=== PATIENT | male | born 1950 | race Caucasian/White ===

== ENCOUNTER 2018-09-20 17:45 | Inpatient (IN) ==
[2018-09-20] MEDS ORDERED: Mag Hydrox/Al Hydrox/Simeth 30 ML UDC PO PRN (18:33)
[2018-09-20] MEDS ORDERED: Haloperidol Lactate 5 MG/ML VIAL IM PRN (18:33)
[2018-09-20] MEDS ORDERED: traZODone 50 MG TABLET PO PRN (18:33)
[2018-09-20] MEDS ORDERED: *HR* LORazepam 1 MG TABLET PO PRN (18:33)
[2018-09-20] MEDS ORDERED: Ibuprofen 400 MG TABLET PO PRN (18:33)
[2018-09-20] MEDS ORDERED: hydrOXYzine pamoate 25 MG CAPSULE PO PRN (18:33)
[2018-09-20] MEDS ORDERED: *HR* LORazepam 2 MG/ML VIAL IM PRN (18:33)
[2018-09-20] MEDS ORDERED: MOM Conc 10 ML UD.LIQ PO PRN (18:33)
[2018-09-20] MEDS: hydroCHLOROthiazide 25 MG TABLET PO SCH (21:02)
[2018-09-20] MEDS: Lisinopril 20 MG TABLET PO SCH (21:03)
[2018-09-20] MEDS: FLUoxetine 20 MG CAPSULE PO SCH (21:03)
[2018-09-21] MEDS: Metoprolol XL (24 HR) Succ 50 MG TAB.ER.24H PO SCH ×2 (00:09→09:34)
[2018-09-21] MEDS: FLUoxetine 20 MG CAPSULE PO SCH (09:34)
[2018-09-21] MEDS: hydroCHLOROthiazide 25 MG TABLET PO SCH (09:34)
--- NOTE | 2018-09-21 11:21 | Psychiatry History & Physical ---
Date of Encounter: 09/21/18 Time of Encounter: 11:00 History of Present Illness Patient Stated Chief Complaint: I am Depressed. Medicare Admission Attestation: For traditional Medicare patients the provided hospital inpatient services are reasonable and necessary and in the case of services not specified as inpatient-only under 42 CFR 419.22 (n), that they are appropriately provided as inpatient services in accordance 42 CFR 412.3. For Critical Access Hospital the patient may reasonably be expected to be discharged or transferred to a hospital within 96 hours after admission to the Critical Access Hospital. Admitted From: Home Plans for Post Hospital Care: Home History of Present Illness: Mr. Lee is a 67 year old male, marriedx1, with son 42 and daughter 37 who presents with exacerbation of Depression. Pt noted he made it to [employer] degree in management and associates degree in engineering. Pt noted he is currently employed at [employer] in [place]. Pt note he currently lives in [place] with his . Pt denied any previous suicide attempts. Pt noted one previous inpt psychiatric admission to [facility] due to anxiety and depression. Pt noted he is currently on fluoxetine 40 mg for mood. Pt denies any suicides or mental health hx in his family. Pt denied any hx of abuse, trauma or neglect. Pt Noted he was doing "better today." Pt stated that his appetite was "good....." Pt stated that he slept "8 hours broken." last night. Pt noted his appetite is "good." Pt rated his depression a "7," on a scale of zero to ten w ith ten being the worst and zero being none. Pt rated his anxiety a "7," on the same scale. Pt denied any current thoughts to harm himself or anyone else. Pt noted he currently feels safe and comfortable on the unit. Pt denied any auditory or visual hallucinations. Currently had an affair on his due to her note having a sex drive anymore. Pt noted "the guilt is horrible." Pt denied any hx of Hep C, HIV, TBIs or Seizures. Tobacco: Denies any current Street drugs: Denies any current Alcohol: Denies any current Caffeine: 1-2 per day. NO TD noted, AIMS=0 1. Interval History. 2. Review current labs 3. Continue current medications 4. Supportive Therapy Provided 5. Pt had an opportunity to ask questions and address concerns 6. Pt encouraged to continue therapy group or individual. 7. Pt was in agreement with treatment plan. 8. The risks benefits and side effects of medications were discussed with the patient, including alternatives and no treatment. 9. Pt educated on abstaining from any alcohol or illicit substances, following up with all scheduled appointments, and taking all medications as prescribed. 10. Increase fluoxetine to 60 mg PO QAM for mood 11. Start aripiprazole 2 mg PO for mood. Past Med Surg Social Fam HX - Past Medical History Medical history: hypertension - Past Psychiatric History Psychiatric history: Reports: depression Family psychiatric history: No Family History of Suicide: None - Past Surgical History Surgical History: non-contributory - Social History Smoking Status: Never smoker Smokeless Tobacco Status: No Alcohol use: none Drug use: none Medications & Allergies Enalapril Maleate [Vasotec] 10 mg PO BID 09/14/16 [History] Tamsulosin HCl [Flomax] 0.4 mg PO HS 09/14/16 [History] hydroCHLOROthiazide [Hydrochlorothiazide] 25 mg PO DAILY 09/14/16 [History] FLUoxetine HCl [Fluoxetine HCl] 40 mg PO DAILY 09/20/18 [History] Metoprolol XL (24 HR) Succ [Toprol XL] 50 mg PO DAILY 09/20/18 [History] Allergy/AdvReac Type Severity Reaction Status Date / Time chicken derived Allergy Unknown See Verified 09/14/16 09:43 Comments Review of Systems Constitutional: Denies: fever, chills, weakness, weight change Eyes: Denies: eye pain, vision change Ears, Nose, Throat: Denies: ear pain, throat pain, dental pain, hearing loss, congestion Cardiovascular: Denies: chest pain, palpitations, dyspnea on exertion Respiratory: Denies: cough, dyspnea, wheezes Gastrointestinal: Denies: abdominal pain, nausea, vomiting, diarrhea, constipation Genitourinary male: Denies: urgency, dysuria, frequency, genital lesions Musculoskeletal: Denies: joint swelling, joint pain Integumentary: Denies: rash, lesions, pruritus Neurological: Denies: headache, weakness, numbness, memory loss Psychiatric: Reports: depression Endocrine: Denies: fatigue, heat or cold intolerance Hematologic/Lymphatic: Denies: easy bruising, lymphadenopathy Allergic/Immunologic: Denies: urticaria, itchy eyes Exam - HEENT Head exam IM: Present: atraumatic Eye exam IM: Present: EOMI, normal appearance, PERRL ENT exam IM: Present: normal exam - Neurological Neurological exam: Present: CN II-XII intact - Respiratory Respiratory exam IM: Present: CTAB - GI/Abdominal GI/Abdominal exam IM: Present: normal bowel sounds, soft. Absent: tenderness - Extremities Extremities exam IM: Present: full ROM - Skin Skin exam IM: Present: dry, warm - Constitutional Vitals: Temp Pulse Resp BP Pulse Ox 98.9 F 72 18 172/94 96 09/21/18 09:00 09/21/18 09:00 09/21/18 09:00 09/21/18 09:00 09/21/18 09:00 General appearance: age & developmentally appropriate, well-groomed, well- nourished - Musculoskeletal Gait: normal Station: relaxed Strength & Tone: normal for patient - Psychiatric Patient Orientation: Yes Person, Yes Time, Yes Place Level of alertness: Alert Behavior: calm, cooperative Psychomotor activity: Normal Eye Contact: Maintains Eye Contact Mood Description: Euthymic/stable Affect description: congruent with mood, full range Speech Volume: Normal Speech pattern: normal rate, normal rhythm, normal tone, fluent, spontaneous Language & Vocabulary: consistent with education Thought Process: Linear, Goal Oriented Thought Content: No Suicidal ideation, No Homicidal ideation, No Overt delusions Perceptual Disturbances: No Auditory hallucinations, No Visual hallucinations Attention Span Ability: Capable of Focused Attention Memory Description: Grossly Intact Patient Reliability: Reliable Historian Fund of knowledge: Yes abstraction ability, Yes average, Yes aware of current events Intelligence Estimate: Average Judgment: Limited Insight: Partial Assessment and Plan (1) Adjustment disorder Current visit: Yes Status: Acute Plan: Admit inpatient for safety and stabilization, Close observation, Suicide Precautions per unit protocol, Encourage participation in unit milieu, Group Therapy, Monitor sleep, Monitor appetite Risks, benefits, side effects, alternatives discussed w/pt: Yes Patient agreeable to treatment: Yes Plans for Post Hospital Care: at Home Qualifiers: Adjustment disorder type: with depressed mood Qualified Code(s): F43.21 - Adjustment disorder with depressed mood (2) Depressive disorder Current visit: Yes Status: Acute Plan: Admit inpatient for safety and stabilization, Close observation, Suicide Precautions per unit protocol, Encourage participation in unit milieu, Group Therapy, Monitor sleep, Monitor appetite Risks, benefits, side effects, alternatives discussed w/pt: Yes Patient agreeable to treatment: Yes Plans for Post Hospital Care: at Home (3) Suicidal ideation Current visit: Yes Status: Acute Plan: Admit inpatient for safety and stabilization, Close observation, Suicide Precautions per unit protocol, Encourage participation in unit milieu, Group Therapy, Monitor sleep, Monitor appetite Risks, benefits, side effects, alternatives discussed w/pt: Yes Patient agreeable to treatment: Yes Plans for Post Hospital Care: at Home
[2018-09-21] MEDS: ARIPiprazole 2 MG TABLET PO SCH (11:50)
[2018-09-21] MEDS: Lisinopril 20 MG TABLET PO SCH (21:19)
[2018-09-22] MEDS: ARIPiprazole 2 MG TABLET PO SCH (08:56)
[2018-09-22] MEDS: Metoprolol XL (24 HR) Succ 50 MG TAB.ER.24H PO SCH (08:56)
[2018-09-22] MEDS: hydroCHLOROthiazide 25 MG TABLET PO SCH (08:56)
[2018-09-22] MEDS: FLUoxetine 20 MG CAPSULE PO SCH (08:57)
--- NOTE | 2018-09-22 13:39 | Psychiatry Progress Note ---
Date of Encounter: 09/22/18 Time of Encounter: 13:00 Subjective Interval history: Mr. Lee is a 67 year old male, marriedx1, with son 42 and daughter 37 who presents with exacerbation of Depression. PT noted he is feeling safe and comfortable for D/C tomorrow. Pt was in agreement with treatment team planning Pt Noted he was doing "much better today." Pt stated that his appetite was "good....." Pt stated that he slept "8 hours." last night. Pt noted his appetite is "good." Pt rated his depression a "0," on a scale of zero to ten with ten being the worst and zero being none. Pt rated his anxiety a "0," on the same scale. Pt denied any current thoughts to harm himself or anyone else. Pt noted he currently feels safe and comfortable on the unit. Pt denied any auditory or visual hallucinations. NO TD noted, AIMS=0 1. Interval History. 2. Review current labs 3. Continue current medications 4. Supportive Therapy Provided 5. Pt had an opportunity to ask questions and address concerns 6. Pt encouraged to continue therapy group or individual. 7. Pt was in agreement with treatment plan. 8. The risks benefits and side effects of medications were discussed with the patient, including alternatives and no treatment. 9. Pt educated on abstaining from any alcohol or illicit substances, following up with all scheduled appointments, and taking all medications as prescribed. 10. Continue fluoxetine to 60 mg PO QAM for mood 11. Continue aripiprazole 2 mg PO for mood. 12. Coordinate for D/C tomorrow Review of Systems Constitutional: Denies: fever, chills, weakness, weight change Eyes: Denies: eye pain, vision change Ears, Nose, Throat: Denies: ear pain, throat pain, dental pain, hearing loss, congestion Cardiovascular: Denies: chest pain, palpitations, dyspnea on exertion Respiratory: Denies: cough, dyspnea, wheezes Gastrointestinal: Denies: abdominal pain, nausea, vomiting, diarrhea, constipation Musculoskeletal: Denies: joint swelling, joint pain Neurological: Denies: headache, weakness, numbness, memory loss Psychiatric: Reports: depression Results - Vital Signs Vital Signs: Temp Pulse Resp BP Pulse Ox 98.1 F 62 18 131/75 95 09/22/18 08:41 09/22/18 08:41 09/22/18 08:41 09/22/18 08:41 09/22/18 08:41 Assessment and Plan (1) Adjustment disorder Current visit: Yes Status: Acute Plan: Continue hospitalization, Close observation, Suicide Precautions per unit protocol, Encourage participation in unit milieu, Group Therapy, Monitor sleep, Monitor appetite Risks, benefits, side effects, alternatives discussed w/pt: Yes Patient agreeable to treatment: Yes Qualifiers: Adjustment disorder type: with depressed mood Qualified Code(s): F43.21 - Adjustment disorder with depressed mood (2) Depressive disorder Current visit: Yes Status: Acute Plan: Continue hospitalization, Close observation, Suicide Precautions per unit protocol, Encourage participation in unit milieu, Group Therapy, Monitor sleep, Monitor appetite Risks, benefits, side effects, alternatives discussed w/pt: Y es Patient agreeable to treatment: Yes (3) Suicidal ideation Current visit: Yes Status: Acute Plan: Continue hospitalization, Close observation, Suicide Precautions per unit protocol, Encourage participation in unit milieu, Group Therapy, Monitor sleep, Monitor appetite Risks, benefits, side effects, alternatives discussed w/pt: Yes Patient agreeable to treatment: Yes Consult Discharge Plan - Plan Additional Instructions: Plan for D/C home with tomorrow Psychiatry Exam - Constitutional Vitals: Temp Pulse Resp BP Pulse Ox 98.1 F 62 18 131/75 95 09/22/18 08:41 09/22/18 08:41 09/22/18 08:41 09/22/18 08:41 09/22/18 08:41 General appearance: age & developmentally appropriate, well-groomed, well- nourished - Musculoskeletal Gait: normal Station: relaxed Strength & Tone: normal for patient - Psychiatric Patient Orientation: Yes Person, Yes Time, Yes Place Level of alertness: Alert Behavior: calm, cooperative Psychomotor activity: Normal Eye Contact: Maintains Eye Contact Mood Description: Euthymic/stable Affect description: congruent with mood, full range Speech Volume: Normal Speech pattern: normal rate, normal rhythm, normal tone, fluent, spontaneous Language & Vocabulary: consistent with education Thought Process: Linear, Goal Oriented Thought Content: No Suicidal ideation, No Homicidal ideation, No Overt delusions Perceptual Disturbances: No Auditory hallucinations, No Visual hallucinations Attention Span Ability: Capable of Focused Attention Memory Description: Grossly Intact Patient Reliability: Reliable Historian Fund of knowledge: Yes abstraction ability, Yes aware of current events Intelligence Estimate: Average Judgment: Limited Insight: Partial
[2018-09-22] MEDS: Lisinopril 20 MG TABLET PO SCH (20:05)
[2018-09-23] MEDS: ARIPiprazole 2 MG TABLET PO SCH (08:09)
[2018-09-23] MEDS: FLUoxetine 20 MG CAPSULE PO SCH (08:09)
[2018-09-23] MEDS: hydroCHLOROthiazide 25 MG TABLET PO SCH (08:09)
[2018-09-23] MEDS: Metoprolol XL (24 HR) Succ 50 MG TAB.ER.24H PO SCH (08:09)
--- NOTE | 2018-09-23 17:19 | Psychiatry Progress Note ---
Date of Encounter: 09/23/18 Time of Encounter: 17:05 Subjective Interval history: Pt tells me today, "I was feeling suicidal, but I know that's not the answer. It never was." Patient continues to report that he is less depressed and more hopeful now after his family visited last night and he knows everything is going to work out. He talks about being very stressed with some life events and realized that he probably could have handled it differently. He feels the new medication, abilify, and increased dose of Prozac is going to be helpful. He fels he has more energy today. He has found groups to be helpful to talk about his issues with otehrs and see that everyone has problems. He is not alone. He is going to go to therapy with his . He is still very sexually active and this was part of the issue for him and they are going to try to revitalize that aspect of their relationship. I explained to him that the increased dose of Prozac may cause erectile issues in addition to the starting of Abilify. He verbalized understanding. He reports eating and sleeping better. He denies any issues with his mood at this time. He denies any suicidal or homicidal ideation, auditory or visual hallucinations. Pt noted he currently feels safe and comfortable on the unit but wants to see about discharge, believing that he would be safe to go home soon. AIMS=0 1. Continue current dose of medications as currently written. 2. Encouraged him to work on discharge planning with the unit oncology social work for probable discharge tomorrow. Review of Systems Psychiatric: Reports: depression Results - Vital Signs Vital Signs: Temp Pulse Resp BP Pulse Ox 98.6 F 67 16 128/80 98 09/23/18 08:59 09/23/18 08:59 09/23/18 08:59 09/23/18 08:59 09/23/18 08:59 Assessment and Plan (1) Depressive disorder Current visit: Yes Status: Acute Plan: Continue hospitalization, Close observation, Suicide Precautions per unit protocol, Encourage participation in unit milieu, Group Therapy, Monitor sleep, Monitor appetite Risks, benefits, side effects, alternatives discussed w/pt: Yes (Prozac increase and Abilify started at 2 mg.) Patient agreeable to treatment: Yes Consult Discharge Plan - Plan Additional Instructions: Plan for D/C home with tomorrow Referrals: [facility] [place] [Other] [facility] [Outside] - 09/26/18 8:00 am (Scheduled with Luis Stubbs Psy.D. on SaturdaySeptember 26 at 8:00 AM. ) Psychiatry Exam - Constitutional Vitals: Temp Pulse Resp BP Pulse Ox 98.6 F 67 16 128/80 98 09/23/18 08:59 09/23/18 08:59 09/23/18 08:59 09/23/18 08:59 09/23/18 08:59 General appearance: age & developmentally appropriate - Musculoskeletal Gait: normal Station: slouched Strength & Tone: normal for patient - Psychiatric Patient Orientation: Yes Person, Yes Time, Yes Place, Yes Circumstance Level of alertness: Alert Behavior: anxious (mildly) Psychomotor activity: Normal Eye Contact: Maintains Eye Contact Mood Description: Depressed (mildly) Affect description: congruent with mood Speech Volume: Normal Speech pattern: normal rate, normal rhythm, normal tone, fluent Language & Vocabulary: consistent with education Thought Process: Intact, Logical, Linear, Goal Oriented Thought Content: Yes Intact Attention Span Ability: Capable of Focused Attention Memory Description: Grossly Intact Patient Reliability: Reliable Historian Fund of knowledge: Yes average Intelligence Estimate: Average Judgment: Good Insight: Partial
[2018-09-23] MEDS: Lisinopril 20 MG TABLET PO SCH (20:16)
[2018-09-24] MEDS: Metoprolol XL (24 HR) Succ 50 MG TAB.ER.24H PO SCH (08:08)
[2018-09-24] MEDS: hydroCHLOROthiazide 25 MG TABLET PO SCH (08:08)
[2018-09-24] MEDS: ARIPiprazole 2 MG TABLET PO SCH (08:08)
[2018-09-24] MEDS: FLUoxetine 20 MG CAPSULE PO SCH (08:09)
[2018-09-24 09:45] VITALS: BP 126/77
--- NOTE | 2018-09-24 09:59 | Discharge Summary ---
Date of Encounter: 09/24/18 Time of Encounter: 09:40 Diagnosis - Discharge Diagnosis (1) Depressive disorder Status: Acute Medications - Discharge Medications Prescriptions: ARIPiprazole [Abilify] 2 mg PO DAILY 30 Days #30 tablet FLUoxetine HCl [Prozac] 20 mg PO DAILY 30 Days #30 capsule Enalapril Maleate [Vasotec] 10 mg PO BID 09/14/16 [History] Tamsulosin HCl [Flomax] 0.4 mg PO HS 09/14/16 [History] hydroCHLOROthiazide [Hydrochlorothiazide] 25 mg PO DAILY 09/14/16 [History] FLUoxetine HCl [Fluoxetine HCl] 40 mg PO DAILY 09/20/18 [History] Metoprolol XL (24 HR) Succ [Toprol Xl] 50 mg PO DAILY 09/20/18 [History] Tadalafil 20 mg PO DAILY PRN 09/22/18 [History] ARIPiprazole [Abilify] 2 mg PO DAILY 30 Days #30 tablet 09/24/18 [Rx] FLUoxetine HCl [Prozac] 20 mg PO DAILY 30 Days #30 capsule 09/24/18 [Rx] Allergy/AdvReac Type Severity Reaction Status Date / Time chicken derived Allergy Unknown See Verified 09/14/16 09:43 Comments Provider Date of admission: 09/20/18 17:45 Primary care physician: PCP NONE Psychiatry Exam - Constitutional Vitals: Temp Pulse Resp BP Pulse Ox 98.2 F 75 16 126/77 97 09/24/18 09:00 09/24/18 09:00 09/24/18 09:00 09/24/18 09:00 09/24/18 09:00 General appearance: age & developmentally appropriate, obese - Musculoskeletal Gait: normal Station: relaxed Strength & Tone: normal for patient - Psychiatric Patient Orientation: Yes Person, Yes Time, Yes Place, Yes Circumstance Level of alertness: Alert Behavior: calm Psychomotor activity: Normal Eye Contact: Fleeting Contact Mood Description: Anxious (mildly) Affect description: congruent with mood Speech Volume: Normal Speech pattern: normal rate, normal rhythm, normal tone, fluent Language & Vocabulary: consistent with education Thought Process: Intact, Logical, Linear, Goal Oriented Thought Content: Yes Intact Attention Span Ability: Capable of Focused Attention Memory Description: Grossly Intact Patient Reliability: Reliable Historian Fund of knowledge: Yes average Intelligence Estimate: Average Judgment: Good Insight: Full Hospital Course Hospital course: Mr. Lee is a 67 year old male Does patient wish to continue nicotine replacement upon disc: No (Non smoker) - Time Spent with Patient Total time spent providing and/or coordinating discharge services: 25 min Less than 30 minutes Assessment and Plan - Patient/Caregiver Discharge Instructions Activity: resume usual activities as tolerated Diet: regular diet Additional Instructions: Plan for D/C home with tomorrow - Follow up Plan Follow up with: [facility] [place] [Other] [facility] [Outside] - 09/26/18 8:00 am (Scheduled with Luis Stubbs Psy.D. on SaturdaySeptember 26 at 8:00 AM. ) Functional capacity at discharge: independent ambulation Overall status at discharge: Stable Disposition: Home, Self-Care Quality - Multiple Antipsychotics Patient discharged on 2 or more antipsychotic medications: No Procedures - Procedures Procedures: Medication Management, Crisis Stabilization, Supportive Therapy, Group Therapy, Psychoeducational Therapy
== END 2018-09-24 11:10 | disposition home or self-care (01) | DRG 881 ==
LOC: 1ANU 17:45 → SUATTDRO 17:45
PROVIDERS: ADMIT General Practice; ATTEND Psychiatry & Neurology Psychiatry

== ENCOUNTER 2019-06-18 10:11 | Inpatient (IN) ==
[2019-06-18 11:11] LABS: Bilirubin,Urine Negative (Negative); Blood,Urine Negative (Negative); Clarity,Urine Clear (Clear); Color,Urine Yellow (Yellow); Glucose,Urine (UA) Normal (Normal); Ketones,Urine Negative (Negative); Leukocyte Esterase,Urine Negative (Negative); Nitrite,Urine Negative (Negative); PH,Urine 5.5 pH Units (5.0-8.0); Protein,Urine Trace mg/dL (Neg-Trace); Specific Gravity,Urine 1.022 (1.010-1.025); Urobilinogen,Urine Normal (Normal)
[2019-06-18 11:19] LABS: Hematocrit 40.7 % (37.5-50.1); Hemoglobin 14.2 g/dL (12.9-16.9); Immature Granulocytes % 0.2 % (0-4); Lymphocytes % 23.7 %; Mean Corpuscular HGB Conc 34.9 g/dL (31.6-35.5); Mean Corpuscular Hemoglobin 31.2 pg (28.0-33.3); Mean Corpuscular Volume 89.5 fL (83.0-100.0); Mean Platelet Volume 9.5 fL (9.4-12.4); Platelet Count 193 K/mcL (140-400); Red Blood Count 4.55 M/mcL (4.19-5.50); Red Cell Distribution Width 12.7 % (11.5-14.5); Segmented Neutrophils % 63.3 %; White Blood Count 9.1 K/mcL (4.3-11.1)
[2019-06-18 11:20] LABS: Basophils # 0.1 K/mcL (0.0-0.2); Basophils % 0.5 %; Eosinophils # 0.4 K/mcL (0.0-0.6); Eosinophils % 4.4 %; Lymphocytes # 2.2 K/mcL (0.6-4.6); Monocytes # 0.7 K/mcL (0.0-1.3); Monocytes % 7.9 %; Neutrophils # 5.8 K/mcL (1.6-8.9)
[2019-06-18 11:24] LABS: Amphetamine Screen,Urine Negative ng/mL (Cutoff=1000); Barbiturate Screen,Urine Negative ng/mL (Cutoff=200); Benzodiazepines Screen,Urine Positive ng/mL (Cutoff=200); Cannabinoid Screen,Urine Negative ng/mL (Cutoff = 50); Cocaine Screen,Urine Negative ng/mL (Cutoff= 300); Opiate Screen,Urine Negative ng/mL (Cutoff=300); Phencyclidine Screen,Urine Negative ng/mL (Cutoff=25)
[2019-06-18 11:34] LABS: Acetaminophen < 10 mcg/mL (10-20); BUN/Creatinine Ratio 20 (6-26); Blood Urea Nitrogen 27 mg/dL (8-23); Calcium 9.4 mg/dL (8.6-10.3); Carbon Dioxide 28 mEq/L (23-29); Chloride 100 mEq/L (98-107); Ethanol < 10 mg/dL (Less than 10); Glucose 91 mg/dL (70-105); Osmolality,Calculated 287 (280-300); Potassium 3.5 mEq/L (3.5-5.1); Salicylate < 2.5 mg/dL (15.0-30.0); Sodium 136 mEq/L (136-145); eGFR For African Americans > 60 (> 60); eGFR For Non-African Americans 51 (> 60)
[2019-06-18] MEDS ORDERED: Haloperidol Lactate 5 MG/ML VIAL IM PRN (13:29)
[2019-06-18] MEDS ORDERED: Acetaminophen 325 MG TABLET PO PRN (13:29)
[2019-06-18] MEDS ORDERED: MOM Conc 10 ML UD.LIQ PO PRN (13:29)
[2019-06-18] MEDS ORDERED: Mag Hydrox/Al Hydrox/Simeth 30 ML UDC PO PRN (13:29)
[2019-06-18] MEDS ORDERED: *HR* LORazepam 2 MG/ML VIAL IM PRN (13:29)
[2019-06-18] MEDS ORDERED: traZODone 50 MG TABLET PO PRN (13:29)
[2019-06-18] MEDS ORDERED: *HR* LORazepam 1 MG TABLET PO PRN (13:29)
[2019-06-18] MEDS ORDERED: hydrOXYzine pamoate 25 MG CAPSULE PO PRN (13:29)
[2019-06-18] MEDS ORDERED: ALPRAZolam 1 MG TABLET PO PRN (14:10)
[2019-06-19] MEDS: hydroCHLOROthiazide 25 MG TABLET PO SCH (08:41)
[2019-06-19] MEDS: Lisinopril 20 MG TABLET PO SCH (08:41)
[2019-06-19] MEDS ORDERED: Venlafaxine XR (24 HR) 75 MG CAP.ER.24H PO SCH ×2 (09:00→11:00)
[2019-06-19] MEDS ORDERED: Venlafaxine XR (24 HR) 75 MG CAP.ER.24H PO ONE (11:30)
[2019-06-20] MEDS: Venlafaxine XR (24 HR) 150 MG CAP.ER.24H PO SCH (09:22)
[2019-06-20] MEDS: Lisinopril 20 MG TABLET PO SCH (09:23)
[2019-06-20] MEDS: hydroCHLOROthiazide 25 MG TABLET PO SCH (09:23)
[2019-06-21] MEDS: hydroCHLOROthiazide 25 MG TABLET PO SCH (08:47)
[2019-06-21] MEDS: Venlafaxine XR (24 HR) 150 MG CAP.ER.24H PO SCH (08:47)
[2019-06-21] MEDS: Lisinopril 20 MG TABLET PO SCH (08:47)
[2019-06-21 10:20] VITALS: BP 112/71
== END 2019-06-21 13:00 | disposition home or self-care (01) | DRG 885 ==
LOC: EMEROOARM 10:11 → 1ANU 13:27
PROVIDERS: ADMIT Psychiatry & Neurology Psychiatry; ATTEND Psychiatry & Neurology Psychiatry

== ENCOUNTER 2020-04-06 10:45 | Inpatient (IN) ==
[~2020-04-06 10:45] MED LIST: Acetaminophen IV 1,000 MG/100 ML INFUS..BTL IVPB ONE; Famotidine 20 MG/2 ML VIAL IVP ONE; Pregabalin 75 MG CAPSULE PO ONE; Total Joint Mixture (50 ml) INTRAART ONE
[2020-04-06] MEDS ORDERED: Lidocaine -MPF 2% 2 ML VIAL ONE ×3 (11:35→13:29)
[2020-04-06] MEDS ORDERED: CeFAZolin Syr 2,000MG/20 ML 2,000 MG/20 ML SYRINGE IVPB ONE (11:42)
[2020-04-06] MEDS: Ringers Solution, Lactated 1,000 ML IVC SCH ×2 (12:05→14:32)
[2020-04-06] MEDS ORDERED: Ondansetron 4 MG/2 ML VIAL IVP ONE (12:08)
[2020-04-06] MEDS ORDERED: *HR* OxyCODONE Immed Rel 5 MG TABLET PO PRN (12:08)
[2020-04-06] MEDS ORDERED: ROPIVACAINE/PF/NS 0.25% 1 EACH SYRINGE INTRAART ONE (12:13)
[2020-04-06] MEDS ORDERED: *HR* Midazolam HCl 2 MG/2 ML VIAL ONE ×2 (12:13→12:30)
[2020-04-06] MEDS ORDERED: Lidocaine -MPF 1% 5 ML AMPUL ONE (12:33)
[2020-04-06] MEDS ORDERED: Tranexamic Acid 1,000 MG/10 ML VIAL ONE (13:29)
[2020-04-06] MEDS ORDERED: *HR* Propofol 200 MG/20 ML VIAL IVP ONE (13:29)
[2020-04-06 14:57] LABS: Hematocrit 37.3 % (37.5-50.1); Hemoglobin 12.4 g/dL (12.9-16.9)
[2020-04-06] MEDS ORDERED: Vancomycin 1,000 MG VIAL ONE (16:42)
[2020-04-06] MEDS ORDERED: Ethanol\\Acetic Acid\\Na Ace\\Ben 1,000 ML IRRIG.SOLN IR ONE (16:42)
[2020-04-06] MEDS ORDERED: *HR* Promethazine 25 MG/ML VIAL IVP PRN (17:37)
[2020-04-06] MEDS ORDERED: MOM Conc 10 ML UD.LIQ PO PRN (17:37)
[2020-04-06] MEDS ORDERED: Dextrose Gel 15 GM/37.5 ML TUBE PO PRN ×2 (17:37)
[2020-04-06] MEDS ORDERED: Ondansetron 4 MG/2 ML VIAL IVP PRN (17:37)
[2020-04-06] MEDS ORDERED: Ringers Solution, Lactated 1,000 ML IVC SCH (17:37)
[2020-04-06] MEDS ORDERED: Sennosides 8.6 MG TABLET PO PRN (17:37)
[2020-04-06] MEDS ORDERED: *HR* Dextrose 50 % in Water (Vial) 50 ML VIAL IVP PRN (17:37)
[2020-04-06] MEDS ORDERED: D5% in Water 1,000 ML IVC PRN (17:37)
[2020-04-06] MEDS ORDERED: Naloxone 0.4 MG/ML INJ IVP PRN (17:37)
[2020-04-06] MEDS: Ascorbic Acid 500 MG TABLET PO SCH (18:42)
[2020-04-06] MEDS: *HR* OxyCODONE Immed Rel 5 MG TABLET PO PRN (18:48)
[2020-04-06] MEDS: CeFAZolin 2 GM/120 ML BAG IVPB SCH (20:20)
[2020-04-06] MEDS: Insulin LISPRO 300 UNITS/3 ML VIAL SQ SCH ×2 (20:20→22:27)
[2020-04-07] MEDS: *HR* OxyCODONE Immed Rel 5 MG TABLET PO PRN ×5 (03:51→21:52)
[2020-04-07] MEDS: CeFAZolin 2 GM/120 ML BAG IVPB SCH (03:53)
[2020-04-07 05:15] LABS: Basophils # 0.1 K/mcL (0.0-0.2); Basophils % 0.5 %; Eosinophils # 0.4 K/mcL (0.0-0.6); Eosinophils % 3.4 %; Hematocrit 36.2 % (37.5-50.1); Hemoglobin 12.1 g/dL (12.9-16.9); Immature Granulocytes % 0.4 % (0-4); Lymphocytes % 19.8 %; Mean Corpuscular HGB Conc 33.4 g/dL (31.6-35.5); Mean Corpuscular Hemoglobin 30.7 pg (28.0-33.3); Mean Corpuscular Volume 91.9 fL (83.0-100.0); Mean Platelet Volume 9.3 fL (9.4-12.4); Monocytes # 0.9 K/mcL (0.0-1.3); Monocytes % 8.6 %; Neutrophils # 6.9 K/mcL (1.6-8.9); Platelet Count 181 K/mcL (140-400); Red Blood Count 3.94 M/mcL (4.19-5.50); Red Cell Distribution Width 12.5 % (11.5-14.5); Segmented Neutrophils % 67.3 %; White Blood Count 10.2 K/mcL (4.3-11.1)
[2020-04-07 05:35] LABS: BUN/Creatinine Ratio 21 (6-26); Blood Urea Nitrogen 27 mg/dL (8-23); Calcium 8.4 mg/dL (8.6-10.3); Carbon Dioxide 24 mEq/L (23-29); Chloride 98 mEq/L (98-107); Glucose 109 mg/dL (70-105); Osmolality,Calculated 280 (280-300); Potassium 4.3 mEq/L (3.5-5.1); Sodium 132 mEq/L (136-145); eGFR For African Americans > 60 (> 60); eGFR For Non-African Americans 56 (> 60)
[2020-04-07] MEDS: Insulin LISPRO 300 UNITS/3 ML VIAL SQ SCH ×4 (08:47→21:57)
[2020-04-07] MEDS: Venlafaxine XR (24 HR) 150 MG CAP.ER.24H PO SCH (08:52)
[2020-04-07] MEDS: Metoprolol XL (24 HR) Succ 50 MG TAB.ER.24H PO SCH (08:52)
[2020-04-07] MEDS: Ascorbic Acid 500 MG TABLET PO SCH ×2 (08:52→15:54)
[2020-04-07] MEDS: Multivit/Ca/Min/Fe/FA 1 TAB TABLET PO SCH (08:52)
[2020-04-07] MEDS: Aspirin Enteric Coated 81 MG Tablet PO SCH (12:20)
[2020-04-07] MEDS: Gabapentin 300 MG CAPSULE PO SCH ×2 (14:18→21:53)
[2020-04-08 03:22] LABS: Basophils % 0.3 %; Eosinophils # 0.5 K/mcL (0.0-0.6); Eosinophils % 4.7 %; Hemoglobin 11.4 g/dL (12.9-16.9); Immature Granulocytes % 0.3 % (0-4); Lymphocytes # 1.7 K/mcL (0.6-4.6); Lymphocytes % 17.4 %; Mean Corpuscular HGB Conc 33.5 g/dL (31.6-35.5); Mean Corpuscular Hemoglobin 30.4 pg (28.0-33.3); Mean Corpuscular Volume 90.7 fL (83.0-100.0); Mean Platelet Volume 9.6 fL (9.4-12.4); Monocytes % 10.4 %; Neutrophils # 6.5 K/mcL (1.6-8.9); Platelet Count 178 K/mcL (140-400); Red Blood Count 3.75 M/mcL (4.19-5.50); Red Cell Distribution Width 12.6 % (11.5-14.5); Segmented Neutrophils % 66.9 %; White Blood Count 9.8 K/mcL (4.3-11.1)
[2020-04-08 03:41] LABS: BUN/Creatinine Ratio 18 (6-26); Blood Urea Nitrogen 18 mg/dL (8-23); Calcium 8.5 mg/dL (8.6-10.3); Carbon Dioxide 26 mEq/L (23-29); Chloride 97 mEq/L (98-107); Glucose 124 mg/dL (70-105); Osmolality,Calculated 273 (280-300); Sodium 130 mEq/L (136-145); eGFR For African Americans > 60 (> 60); eGFR For Non-African Americans > 60 (> 60)
[2020-04-08] MEDS: HYDROcodone BIT/Homatropine 5 MG TABLET PO PRN (06:32)
[2020-04-08] MEDS: Ascorbic Acid 500 MG TABLET PO SCH ×2 (07:56→16:41)
[2020-04-08] MEDS: Aspirin Enteric Coated 81 MG Tablet PO SCH (07:56)
[2020-04-08] MEDS: Venlafaxine XR (24 HR) 150 MG CAP.ER.24H PO SCH (07:56)
[2020-04-08] MEDS: Gabapentin 300 MG CAPSULE PO SCH ×3 (07:56→20:29)
[2020-04-08] MEDS: Multivit/Ca/Min/Fe/FA 1 TAB TABLET PO SCH (07:56)
[2020-04-08] MEDS: Metoprolol XL (24 HR) Succ 50 MG TAB.ER.24H PO SCH (07:57)
[2020-04-08] MEDS: Insulin LISPRO 300 UNITS/3 ML VIAL SQ SCH ×4 (07:57→22:10)
[2020-04-08] MEDS ORDERED: 0.9 % Sodium Chloride 1,000 ML ONE (11:06)
[2020-04-08] MEDS ORDERED: 0.9 % Sodium Chloride 500 ML IV ONE (11:06)
[2020-04-08] MEDS ORDERED: *HR* OxyCODONE Immed Rel 5 MG TABLET PO PRN (11:10)
[2020-04-08] MEDS: 0.9 % Sodium Chloride 1,000 ML IVC SCH ×2 (11:58→19:43)
[2020-04-09] MEDS: Insulin LISPRO 300 UNITS/3 ML VIAL SQ SCH ×4 (09:14→20:57)
[2020-04-09] MEDS: Aspirin Enteric Coated 81 MG Tablet PO SCH (10:18)
[2020-04-09] MEDS: Venlafaxine XR (24 HR) 150 MG CAP.ER.24H PO SCH (10:18)
[2020-04-09] MEDS: Gabapentin 300 MG CAPSULE PO SCH ×3 (10:19→20:57)
[2020-04-09] MEDS: Multivit/Ca/Min/Fe/FA 1 TAB TABLET PO SCH (10:19)
[2020-04-09] MEDS: Metoprolol XL (24 HR) Succ 50 MG TAB.ER.24H PO SCH (10:19)
[2020-04-09] MEDS: Ascorbic Acid 500 MG TABLET PO SCH ×2 (10:19→16:10)
[2020-04-09] MEDS: HYDROcodone BIT/Homatropine 5 MG TABLET PO PRN (16:14)
[2020-04-10] MEDS: Insulin LISPRO 300 UNITS/3 ML VIAL SQ SCH ×2 (07:27→12:34)
[2020-04-10] MEDS: Metoprolol XL (24 HR) Succ 50 MG TAB.ER.24H PO SCH (09:25)
[2020-04-10] MEDS: Aspirin Enteric Coated 81 MG Tablet PO SCH (09:25)
[2020-04-10] MEDS: Venlafaxine XR (24 HR) 150 MG CAP.ER.24H PO SCH (09:25)
[2020-04-10] MEDS: Gabapentin 300 MG CAPSULE PO SCH (09:25)
[2020-04-10] MEDS: Multivit/Ca/Min/Fe/FA 1 TAB TABLET PO SCH (09:25)
[2020-04-10] MEDS: Ascorbic Acid 500 MG TABLET PO SCH (09:25)
[2020-04-10 10:59] VITALS: BP 148/76
[2020-04-10] MEDS: HYDROcodone BIT/Homatropine 5 MG TABLET PO PRN (12:38)
== END 2020-04-10 14:12 | DRG 470 ==
LOC: SAMDAY 10:45 → 3NENU 16:04
PROVIDERS: ADMIT Orthopaedic Surgery; ATTEND Orthopaedic Surgery

== ENCOUNTER 2021-03-09 21:10 | Observation (INO) ==
[2021-03-10] MEDS ORDERED: Melatonin 3 MG TABLET PO PRN (02:18)
[2021-03-10] MEDS ORDERED: Ondansetron 4 MG/2 ML VIAL IVP PRN (02:18)
[2021-03-10] MEDS ORDERED: Naloxone 0.4 MG/ML INJ IVP PRN (02:18)
[2021-03-10] MEDS ORDERED: *HR* Heparin 5,000 UNIT/ML VIAL IVP PRN ×2 (02:21)
[2021-03-10] MEDS ORDERED: Heparin 25,000UNIT/250ML 1/2NS 25,000 UNIT/250 ML IV.SOLN IVC SCH (02:30)
[2021-03-10 02:52] LABS: Basophils # 0.1 K/mcL (0.0-0.2); Basophils % 0.7 %; Eosinophils # 0.4 K/mcL (0.0-0.6); Eosinophils % 3.9 %; Hematocrit 37.3 % (37.5-50.1); Hemoglobin 12.6 g/dL (12.9-16.9); Immature Granulocytes % 0.5 % (0-4); Lymphocytes # 2.1 K/mcL (0.6-4.6); Lymphocytes % 19.2 %; Mean Corpuscular HGB Conc 33.8 g/dL (31.6-35.5); Mean Corpuscular Hemoglobin 30.7 pg (28.0-33.3); Mean Corpuscular Volume 90.8 fL (83.0-100.0); Mean Platelet Volume 9.1 fL (9.4-12.4); Monocytes % 8.9 %; Neutrophils # 7.4 K/mcL (1.6-8.9); Platelet Count 214 K/mcL (140-400); Red Blood Count 4.11 M/mcL (4.19-5.50); Red Cell Distribution Width 12.6 % (11.5-14.5); Segmented Neutrophils % 66.8 %; White Blood Count 11.1 K/mcL (4.3-11.1)
[2021-03-10 03:00] LABS: Heparin anti-factor XA UFH 0.83 IU/mL (0.30-0.70); INR 1.2; Prothrombin Time 13.8 Seconds (9.4-12.1)
[2021-03-10 03:13] LABS: Alanine Aminotransferase 11 Units/L (7-52); Albumin 3.7 g/dL (3.5-5.7); Albumin/Globulin Ratio 1.2 (1.1-2.2); Alkaline Phosphatase 87 Units/L (34-104); Aspartate Amino Transferase 16 Units/L (13-39); BUN/Creatinine Ratio 21 (6-26); Bilirubin,Total 0.6 mg/dL (0.3-1.0); Blood Urea Nitrogen 30 mg/dL (8-23); Calcium 8.6 mg/dL (8.6-10.3); Carbon Dioxide 24 mEq/L (23-29); Chloride 103 mEq/L (98-107); Glucose 113 mg/dL (70-105); Osmolality,Calculated 293 (280-300); Phosphorous 3.5 mg/dL (2.7-4.5); Potassium 3.5 mEq/L (3.5-5.1); Sodium 138 mEq/L (136-145); Total Protein 6.7 g/dL (6.4-8.9); Troponin I < 0.03 ng/mL (< 0.04); eGFR For African Americans > 60 (> 60); eGFR For Non-African Americans 50 (> 60)
[2021-03-10 03:16] LABS: Activated Partial Thrombo Time 121.9 Seconds (26.0-36.0)
[2021-03-10] MEDS ORDERED: 0.9 % Sodium Chloride 1,000 ML IVC SCH (04:00)
[2021-03-10] MEDS ORDERED: Metoprolol XL (24 HR) Succ 50 MG TAB.ER.24H PO SCH (09:00)
[2021-03-10] MEDS ORDERED: Venlafaxine XR (24 HR) 150 MG CAP.ER.24H PO SCH (09:00)
[2021-03-10] MEDS ORDERED: Aspirin Enteric Coated 81 MG Tablet PO SCH (09:00)
[2021-03-10] MEDS ORDERED: Gabapentin 300 MG CAPSULE PO SCH (09:00)
[2021-03-10 10:40] VITALS: BP 163/84
[2021-03-10] MEDS ORDERED: Apixaban 5 MG TABLET PO SCH (12:15)
== END 2021-03-10 17:23 | disposition home or self-care (01) ==
LOC: 3ANU → SUATTDRO 03-10 01:24
PROVIDERS: ADMIT Family Medicine; ATTEND Internal Medicine

== ENCOUNTER 2022-01-09 12:11 | Inpatient (IN) ==
[2022-01-09 12:57] LABS: Basophils # 0.1 K/mcL (0.0-0.2); Basophils % 0.6 %; Eosinophils # 0.2 K/mcL (0.0-0.6); Eosinophils % 2.2 %; Hematocrit 38.6 % (37.5-50.1); Hemoglobin 13.5 g/dL (12.9-16.9); Immature Granulocytes % 0.3 % (0-4); Lymphocytes # 3.1 K/mcL (0.6-4.6); Lymphocytes % 32.6 %; Mean Corpuscular Hemoglobin 30.9 pg (28.0-33.3); Mean Corpuscular Volume 88.3 fL (83.0-100.0); Mean Platelet Volume 9.2 fL (9.4-12.4); Monocytes # 0.6 K/mcL (0.0-1.3); Monocytes % 6.7 %; Neutrophils # 5.5 K/mcL (1.6-8.9); Platelet Count 215 K/mcL (140-400); Red Blood Count 4.37 M/mcL (4.19-5.50); Red Cell Distribution Width 13.8 % (11.5-14.5); Segmented Neutrophils % 57.6 %; White Blood Count 9.5 K/mcL (4.3-11.1)
[2022-01-09 13:18] LABS: Acetaminophen < 10 mcg/mL (10-20); BUN/Creatinine Ratio 18 (6-26); Blood Urea Nitrogen 24 mg/dL (8-23); Calcium 9.2 mg/dL (8.6-10.3); Carbon Dioxide 23 mEq/L (23-29); Chloride 100 mEq/L (98-107); Chol/HDL Ratio 5.1 (0-4.9); Cholesterol 174 mg/dL (< 200); Ethanol < 10 mg/dL (Less than 10); Glucose 149 mg/dL (70-105); HDL Cholesterol 34 mg/dL (40-59); LDL Cholesterol,Calculated 92 mg/dL (< 100); Osmolality,Calculated 283 (280-300); Potassium 3.6 mEq/L (3.5-5.1); Salicylate < 2.5 mg/dL (15.0-30.0); Sodium 133 mEq/L (136-145); Triglycerides 239 mg/dL (< 150); eGFR For African Americans > 60 (> 60); eGFR For Non-African Americans 54 (> 60)
[2022-01-09 13:55] LABS: Estimated Average Glucose 111 mg/dl; Hemoglobin A1C 5.5 %
[2022-01-09 14:55] LABS: Bilirubin,Urine Negative (Negative); Blood,Urine Negative (Negative); Clarity,Urine Clear (Clear); Color,Urine Yellow (Yellow); Glucose,Urine (UA) Normal (Normal); Ketones,Urine Negative (Negative); Leukocyte Esterase,Urine Negative (Negative); Nitrite,Urine Negative (Negative); Protein,Urine Negative (Neg-Trace); Specific Gravity,Urine 1.025 (1.010-1.025); Urobilinogen,Urine Normal (Normal)
[2022-01-09 15:48] LABS: Amphetamine Screen,Urine Negative ng/mL (Cutoff=1000); Barbiturate Screen,Urine Negative ng/mL (Cutoff=200); Benzodiazepines Screen,Urine Negative ng/mL (Cutoff=200); Cannabinoid Screen,Urine Negative ng/mL (Cutoff = 50); Cocaine Screen,Urine Negative ng/mL (Cutoff= 300); Opiate Screen,Urine Negative ng/mL (Cutoff=300); Phencyclidine Screen,Urine Negative ng/mL (Cutoff=25)
[2022-01-09 17:47] LABS: INR 2.8; Prothrombin Time 31.2 Seconds (9.4-12.1)
[2022-01-09 19:24] LABS: Influenza A PCR Negative (Negative); Influenza B PCR Negative (Negative); Resp. Syncytial Virus PCR Negative (Negative)
[2022-01-09 19:25] LABS: SARS-CoV-2 by PCR (In House) Negative (Negative)
[2022-01-09] MEDS ORDERED: Haloperidol Lactate 5 MG/ML VIAL IM PRN (19:49)
[2022-01-09] MEDS ORDERED: haloperidoL 5 MG TABLET PO PRN (19:49)
[2022-01-09] MEDS ORDERED: *HR* LORazepam 2 MG/ML VIAL IM PRN (19:49)
[2022-01-09] MEDS ORDERED: hydrOXYzine pamoate 25 MG CAPSULE PO PRN (19:49)
[2022-01-09] MEDS ORDERED: *HR* LORazepam 1 MG TABLET PO PRN (19:49)
[2022-01-09] MEDS ORDERED: Acetaminophen 325 MG TABLET PO PRN (19:49)
[2022-01-10] MEDS ORDERED: Mag Hydrox/Al Hydrox/Simeth 30 ML UDC PO PRN (08:06)
[2022-01-10] MEDS ORDERED: MOM Conc 10 ML UD.LIQ PO PRN (08:06)
[2022-01-10] MEDS ORDERED: Venlafaxine XR (24 HR) 75 MG CAP.ER.24H PO SCH (09:00)
[2022-01-10] MEDS: Venlafaxine XR (24 HR) 75 MG CAP.ER.24H PO SCH (10:37)
[2022-01-10] MEDS: Metoprolol XL (24 HR) Succ 50 MG TAB.ER.24H PO SCH (10:37)
[2022-01-10] MEDS: lisinopriL 10 MG TABLET PO SCH (10:37)
[2022-01-10] MEDS: hydroCHLOROthiazide 25 MG TABLET PO SCH (10:37)
[2022-01-10 11:01] LABS: INR 2.4; Prothrombin Time 26.8 Seconds (9.4-12.1)
[2022-01-10] MEDS ORDERED: *HR* Warfarin 10 MG TABLET PO ONE (18:00)
[2022-01-10] MEDS ORDERED: Warfarin perPT PO PRN (18:00)
[2022-01-10] MEDS: Clobetasol Propionate 0.05% 15 GM Cream Tube TP SCH (20:48)
[2022-01-10] MEDS: traZODone 50 MG TABLET PO PRN (23:38)
[2022-01-11] MEDS: Metoprolol XL (24 HR) Succ 50 MG TAB.ER.24H PO SCH (08:49)
[2022-01-11] MEDS: hydroCHLOROthiazide 25 MG TABLET PO SCH (08:49)
[2022-01-11] MEDS: lisinopriL 10 MG TABLET PO SCH (08:49)
[2022-01-11] MEDS: Venlafaxine XR (24 HR) 75 MG CAP.ER.24H PO SCH (08:50)
[2022-01-11] MEDS: Clobetasol Propionate 0.05% 15 GM Cream Tube TP SCH ×3 (08:53→21:36)
[2022-01-11] MEDS ORDERED: Ketoconazole Shampoo 120 ML BOTTLE TP SCH (09:00)
[2022-01-11] MEDS ORDERED: *HR* Warfarin 10 MG TABLET PO ONE (18:00)
[2022-01-11] MEDS: traZODone 50 MG TABLET PO PRN (20:23)
[2022-01-12] MEDS: Venlafaxine XR (24 HR) 75 MG CAP.ER.24H PO SCH (08:39)
[2022-01-12] MEDS: hydroCHLOROthiazide 25 MG TABLET PO SCH (08:40)
[2022-01-12] MEDS: Metoprolol XL (24 HR) Succ 50 MG TAB.ER.24H PO SCH (08:40)
[2022-01-12] MEDS: lisinopriL 10 MG TABLET PO SCH (08:40)
[2022-01-12] MEDS: Clobetasol Propionate 0.05% 15 GM Cream Tube TP SCH (08:41)
[2022-01-12 08:46] VITALS: BP 143/81; PULSE 60; TEMP 97.2; O2SAT 99
[2022-01-12] MEDS ORDERED: *HR* Warfarin 10 MG TABLET PO ONE (18:00)
== END 2022-01-12 12:50 | disposition home or self-care (01) | DRG 885 ==
LOC: EMEROOARM 12:11 → 1ANU 19:40
PROVIDERS: ADMIT Psychiatry & Neurology Psychiatry; ATTEND Psychiatry & Neurology Psychiatry